=== PATIENT | male | born 1945 | race African-American/Black ===

== ENCOUNTER 2017-04-23 12:49 | Inpatient (IN) | payer MEDICARE ==
[~2017-04-23] VITALS: Ht 185.4 cm; Wt 83.0 kg
[2017-04-23] MEDS ORDERED: BACTOIN EACH NARE (12:51)
[2017-04-23] MEDS ORDERED: BUTA1CAP PO (12:51)
[2017-04-23] MEDS ORDERED: DIBU1OIN RECTAL (12:51)
[2017-04-23] MEDS ORDERED: ANAL1CRE2 RECTAL (12:51)
[2017-04-23] MEDS ORDERED: BACT800T5 PO (12:51)
[2017-04-23] MEDS ORDERED: ACETAMINOPHEN 325 MG TAB PO PRN (15:15)
[2017-04-23] MEDS ORDERED: CHLORHEXIDINE GLUCONATE 2 % 1 PACK (2 CLOTHS) TOP PRN (15:15)
[2017-04-23] MEDS ORDERED: RESP: ALBUTEROL 2.5 MG/IPRATROPIUM 0.5 MG NEB (PRN) INH (15:15)
[2017-04-23] MEDS ORDERED: ONDANSETRON HCL 4 MG/2 ML VIAL IV PRN (15:15)
[2017-04-23] MEDS ORDERED: MORPHINE SULFATE 4 MG/ML INJ IV PRN (15:15)
[2017-04-23] MEDS ORDERED: MISCELLANEOUS NURSING INFORMATION XX SCH (15:15)
[2017-04-23] MEDS ORDERED: MAGNESIUM HYDROXIDE SUSP 30 ML CUP PO PRN (15:15)
[2017-04-23] MEDS ORDERED: SENNOSIDES 8.6 MG TAB PO PRN (15:15)
[2017-04-23] MEDS ORDERED: LACTULOSE SYRUP 20 GM/30 ML CUP PO PRN (15:15)
[2017-04-23] MEDS ORDERED: BISACODYL 10 MG SUPP RECTAL PRN (15:15)
[2017-04-23 15:30] VITALS: PULSE 56
[2017-04-23] MEDS ORDERED: POTASSIUM PHOSPHATE MONOBASIC 500 MG TAB PO PRN (15:45)
[2017-04-23] MEDS ORDERED: MAGNESIUM OXIDE 400 MG TAB PO PRN (15:45)
[2017-04-23] MEDS ORDERED: MAGNESIUM SULFATE INJ 2 GM in SODIUM CHLORIDE 0.9% INJ 96 ML IV PRN (15:45)
[2017-04-23] MEDS ORDERED: POTASSIUM PHOSPHATE MONOBASIC 500 MG TAB PO/TUBE PRN (15:45)
[2017-04-23] MEDS ORDERED: POTASSIUM CHLOR 20 MEQ PREMIX 100 ML IV PRN ×2 (15:45)
[2017-04-23] MEDS ORDERED: POTASSIUM CHLOR 40 MEQ PREMIX 100 ML IV PRN ×2 (15:45)
[2017-04-23] MEDS ORDERED: POTASSIUM PHOSPHATE INJ 30 MMOL in SODIUM CHLOR 0.9% 250 ML INJ 250 ML IV PRN (15:45)
[2017-04-23] MEDS ORDERED: POTASSIUM CHLORIDE 25 MEQ EFFERVESCENT TAB PO PRN (15:45)
[2017-04-23] MEDS ORDERED: SODIUM PHOSPHATE INJ 30 MMOL in SODIUM CHLOR 0.9% 250 ML INJ 240 ML IV PRN (15:45)
[2017-04-23] MEDS ORDERED: MAGNESIUM SULFATE INJ 4 GM in SODIUM CHLORIDE 0.9% INJ 92 ML IV PRN (15:45)
[2017-04-23] MEDS ORDERED: niCARdipine INJ 25 MG in SODIUM CHLOR 0.9% 250 ML INJ 250 ML IV SCH (15:45)
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
[2017-04-23 16:00] VITALS: BP 139/73; PULSE 60; PULSE 70; RESP 14; TEMP 98.2; O2SAT 95
[2017-04-23] MEDS: SODIUM CHLOR 0.9% 1000 ML INJ 1,000 ML IV SCH (16:00)
[2017-04-23 18:00] VITALS: PULSE 46
[2017-04-23] MEDS ORDERED: LORazepam 2 MG/ML VIAL IVP PRN (18:00)
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
[2017-04-23 19:50] VITALS: O2SAT 100
[2017-04-23 20:00] VITALS: BP 133/66; PULSE 68; RESP 27; TEMP 98.3; O2SAT 93
[2017-04-23] MEDS: DOCUSATE SODIUM 50 MG/SENNA 8.6 MG TAB PO SCH (21:04)
[2017-04-23 22:00] VITALS: PULSE 100
[2017-04-24] VITALS (13 sets, daily range): BP systolic 124–133; BP diastolic 66–73; PULSE 50–77; RESP 16–23; TEMP 97.7–98.3; O2SAT 97–99
[2017-04-24] MEDS: CHLORHEXIDINE GLUCONATE 2 % 1 PACK (2 CLOTHS) TOP SCH (04:05)
[2017-04-24 04:37] LABS: BICARBONATE 26.1 MEQ/L (21.0-32.0); MAGNESIUM 2.2 MG/DL (1.5-2.5)
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
[2017-04-24] MEDS: PANTOPRAZOLE SODIUM 40 MG VIAL IV SCH (08:58)
[2017-04-24] MEDS: DOCUSATE SODIUM 50 MG/SENNA 8.6 MG TAB PO SCH ×2 (08:58→21:00)
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
[2017-04-24] MEDS ORDERED: GADODIAMIDE PF 287 MG/ML 20 ML VIAL (for RAD MRI) IV ONE (10:11)
--- NOTE | 2017-04-24 10:11 | RADRPT ---
EXAM DATE/TIME: 04/24/2017 09:38 [facility] COMPARISON: No previous studies available for comparison. INDICATIONS : Hemorrhage. MEDICAL HISTORY : None. SURGICAL HISTORY : None. ENCOUNTER: Subsequent ACUITY: 2 day PAIN SCORE: 0/10 LOCATION: cranial Please note a normal MRA of the brain does not entirely exclude the possibility of a small aneurysm, nor the possibility of distal intracranial vessel disease. TECHNIQUE: 3D time of flight MRA was performed. Source images, multiplanar STS MIP, and 3D volume MIP reconstru ctions were reviewed. FINDINGS: There is excellent visualization of the major intracranial arteries out to the second-order branch ve ssels. There is no evidence for aneurysm, vessel truncation or stenosis, and no evidence for vascula r malformation. The patient has a small basilar artery with prominent posterior communicating arteries bilaterally. The intraparenchymal and intraventricular hemorrhage seen on the CT scan is again noted CONCLUSION: Normal examination of the major cerebral vessels with a small posterior basilar system. Known intrap arenchymal and intraventricular hemorrhage. Faustino Randall MD on April 24, 2017 at 10:07 Board Certified Radiologist. This report was verified electronically.
--- NOTE | 2017-04-24 10:46 | RADRPT ---
EXAM DATE/TIME: 04/24/2017 09:38 [facility] COMPARISON: Prior CT scan 04/23/17, use for comparison. MRA also use for comparison 04/23. INDICATIONS : Hematoma, stroke. CONTRAST: 16 cc Omniscan (gadodiamide) IV MEDICAL HISTORY : None. SURGICAL HISTORY : None. ENCOUNTER: Subsequent ACUITY: 2 day PAIN SCORE: 0/10 LOCATION: Cranial TECHNIQUE: Multiplanar, multisequence MRI of the brain was performed both prior to and following the administration of paramagnetic contrast. FINDINGS: MRI of the brain was performed with and without contrast. There are two areas of intraparenchymal he morrhage within the left cerebrum. The first is in the left occipital lobe anteromedially measuring 2.3 x 1.3 cm across. Then above that there is a bi-lobed area of hemorrhage in its greatest axial di mension measures 2.2 x 2.5 cm. On the sagittal images that bi-lobed collection measures 4.7 cm in AP dimension. Pre and post contrast images show the areas of hemorrhage without any surrounding areas of mass. The ventricle does spill into left lateral ventricular system with significant hemorrhage i n the atria of the left lateral ventricle. There is no significant subarachnoid hemorrhage. No subd ural is seen. At this point there is still no significant mass effect. There is slight mass effect upon the atria of the left lateral ventricle but no shift or obvious herniation. Suprasellar cistern s patent. The areas of hemorrhage do show some increase on the diffusion weighted sequences but the rest of the brain parenchyma is unremarkable. There may be a few tiny areas of increased single on the diffusio n weighted sequences in the very high left parietal cortex but no greater than 2-3 mm. Basal ganglia is unremarkable. Orbits and globes are unremarkable. CONCLUSION: Multiple areas of hemorrhage including some hemorrhage spilling into the ventricular system. No abno rmal areas of enhancement. No underlying mass is identified on the images. Obvious significant abno rmal areas on the grading images. Please see above. Faustino Randall MD on April 24, 2017 at 10:16 Board Certified Radiologist. This report was verified electronically.
[2017-04-24] MEDS: SODIUM CHLOR 0.9% 1000 ML INJ 1,000 ML IV SCH (11:06)
[2017-04-25] VITALS (9 sets, daily range): BP systolic 107–135; BP diastolic 62–80; PULSE 50–78; RESP 14–22; TEMP 97.2–98.3; O2SAT 97–99
[2017-04-25] MEDS: CHLORHEXIDINE GLUCONATE 2 % 1 PACK (2 CLOTHS) TOP SCH (04:21)
[2017-04-25] MEDS: SODIUM CHLOR 0.9% 1000 ML INJ 1,000 ML IV SCH (07:06)
[2017-04-25] MEDS: DOCUSATE SODIUM 50 MG/SENNA 8.6 MG TAB PO SCH ×2 (08:06→21:21)
[2017-04-25] MEDS: PANTOPRAZOLE SODIUM 40 MG VIAL IV SCH (08:06)
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
--- NOTE | 2017-04-25 10:03 | PD.TRANSFR ---
Transfer Summary Admission Date Apr 23, 2017 at 15:25 Transfer Date: Apr 25, 2017 Admitting Diagnosis Intraparenchymal Brain Hemorrhage Diagnoses: (1) Intracerebral hemorrhage Diagnosis: Principal (2) Altered mental status, unspecified Diagnosis: Principal Significant Findings Left sided spontaneous intraparenchymal bleed. Ambulating today. Transfer Summary/Subjective Increase activity. Transfer to floor. Objective Vital Signs Date Time Temp Pulse Resp B/P Pulse Ox O2 Delivery O2 Flow Rate FiO2 04/25/17 08:45 97 21 04/25/17 08:00 97.6 65 16 107/62 04/25/17 07:00 Room Air Intake and Output 04/24/17 04/24/17 04/25/17 08:00 16:00 00:00 Intake Total 501 ml 990 ml 275 ml Output Total 250 ml 125 ml Balance 251 ml 865 ml 275 ml Result Diagram: 04/24/[address] Head: IPH left side, 3X4 cm Objective Remarks P 54, BP 126/56, R 12, Sats 96% Head: Atraumatic, normal. Neck: Supple, airway widely patent. Lungs: Clear, no wheezes or crackles. Heart: NL S1S2, bradycardia, no m,r. No JVD. Abdomen: Soft, NT, ND, no guarding. BS active. Extremities: Warm, well perfused. Neuro: Confused. Speech is clear. Moves 4 limbs to command. Hand grasps 5/5, arms and legs 5/5 strength. Toes down galileo. Pupils reactive, equal. EOMs intact. Tongue protrudes midline. Shoulder shrug symmetrical. Smile, grimace, jaw clench symmetrical. DTRs patella absent. A/P Assessment and Plan Assessment: 1. Left intraparenchymal hemorrhage 2. Encephalopathy. Plan: 1. BP control < 140/90. 2. Cardene prn. 3. Hydralazine prn intermittent control needs. 4. No chemical DVT prophylaxis. 5. SCDs. 6. Protonix. 7. Repeat CT a.m. 8. HOB elevated. 9. Neurosurgery consulting. Overall impression: Intraparenchymal bleed with surrounding vasogenic edema. Establish BP control, follow exam. Increase activity. Hayes Betts MD Apr 25, 2017 10:03
[2017-04-26] VITALS (7 sets, daily range): BP systolic 110–136; BP diastolic 59–76; PULSE 63–93; RESP 17–20; TEMP 97.2–98.8; O2SAT 93–99
[2017-04-26] MEDS: CHLORHEXIDINE GLUCONATE 2 % 1 PACK (2 CLOTHS) TOP SCH (04:00)
[2017-04-26] MEDS: DOCUSATE SODIUM 50 MG/SENNA 8.6 MG TAB PO SCH ×2 (08:16→21:22)
[2017-04-26] MEDS: PANTOPRAZOLE SODIUM 40 MG VIAL IV SCH (08:16)
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
--- NOTE | 2017-04-26 14:52 | HHI.PR ---
Subjective Remarks Patient seen and examined this morning. His vitals are stable and he's afebrile. Wants to shower. Knows where he is and his name. Unsure of date. Incorrectly states what he had for breakfast. Overall significantly improved over the past few days, but is not yet at baseline. Per nurse he can be impulsive. He is able to walk, but is not consistently stable on his feet. Denies CP, HOUSE, or difficulty breathing. Objective Vital Signs Date Time Temp Pulse Resp B/P Pulse Ox O2 Delivery O2 Flow Rate FiO2 04/26/17 12:01 98.1 69 20 124/76 97 04/26/17 08:48 98.0 66 20 136/69 93 04/26/17 05:15 98.8 64 20 128/69 98 04/26/17 00:20 97.7 67 17 132/76 96 04/25/17 20:30 98.0 69 17 135/80 97 04/25/17 16:00 98.3 62 22 125/70 99 I/O 04/25/17 04/25/17 04/25/17 04/26/17 04/26/17 04/26/17 07:00 15:00 23:00 07:00 15:00 23:00 Intake Total 240 ml 480 ml 100 ml 650 ml Output Total 0 ml Balance 240 ml 480 ml 100 ml 650 ml Intake Oral 240 ml 480 ml 100 ml 650 ml Output Urine Total 0 ml # Voids 1 2 4 1 # Bowel Movements 0 1 0 0 1 Result Diagram: 04/24/17 0354 Imaging Last Impressions Head Magnetic Resonance Angiography 04/24/17 06 Signed Impressions: Service Date/Time: Monday, April 24, 2017 09:38 - CONCLUSION: Normal examination of the major cerebral vessels with a small posterior basilar system. Known intraparenchymal and intraventricular hemorrhage. Faustino Randall MD Brain MRI 04/24/17 06 Signed Impressions: Service Date/Time: Monday, April 24, 2017 09:38 - CONCLUSION: Multiple areas of hemorrhage including some hemorrhage spilling into the ventricular system. No abnormal areas of enhancement. No underlying mass is identified on the images. Obvious significant abnormal areas on the grading images. Please see above. Faustion Randall MD Objective Remarks GENERAL: sitting up in bed, nad SKIN: Warm and dry. HEAD: Atraumatic. Normocephalic. EYES: Pupils equal and round. No scleral icterus. No injection or drainage. ENT: No nasal bleeding or discharge. Mucous membranes pink and moist. NECK: Trachea midline. No JVD. CARDIOVASCULAR: Regular rate and rhythm. RESPIRATORY: No accessory muscle use. Clear to auscultation. Breath sounds equal bilaterally. GASTROINTESTINAL: Abdomen soft, non-tender, nondistended. Hepatic and splenic margins not palpable. MUSCULOSKELETAL: Extremities without clubbing, cyanosis, or edema. No obvious deformities. NEUROLOGICAL: Awake and alert. Normal speech. Alert and orientated x 2. Follows commands. PSYCHIATRIC: Appropriate mood and affect; insight and judgment normal. A/P Problem List: (1) Intracerebral hemorrhage ICD Code: I61.9 (2) Altered mental status, unspecified ICD Code: R41.82 Assessment and Plan 71-year-old male patient with intracranial hemorrhage related to left spontaneous intraparenchymal bleed, now with altered mental status. Was initially managed by critical care on admission. Has now been transitioned to hospitalist and neurosurgery continues to follow the patient. Intracerebral hemorrhage: - Management per neurosurgery. - See imaging above, left parietal-occipital lobe nontraumatic intracerebral hemorrhage with extension into lateral ventricle without any hydrocephalus. Differential diagnosis per neurosurgery includes hypertensive bleed, amyloid angiopathy, underlying mass, or vascular abnormality. Their plan is to continue to monitor, continue neuro checks, continue nonsurgical management. Patient will need rehabilitation upon discharge. Altered mental status - Ambulation improving, alertness improving, continues to be disoriented. Causes above. Hypertension: - Goal blood pressure less than 140/90. - Patient currently normotensive Discharge Planning DC home when cleared by neurosurgery. [facility] is following. Patient is requesting to go home upon discharge. PT recommends home with no PT recommendation,'s require supervision for safety. Likely d/c 1-2 as he continues to improve. Problem Qualifiers (1) Intracerebral hemorrhage: Qualified Code: I61.9 - Left-sided nontraumatic intracerebral hemorrhage, unspecified cerebral location Kaylin Flor MD Apr 26, 2017 14:52
[2017-04-27] VITALS (7 sets, daily range): BP systolic 112–142; BP diastolic 62–73; PULSE 61–73; RESP 18; TEMP 97.4–98.7; O2SAT 95–99
[2017-04-27] MEDS: CHLORHEXIDINE GLUCONATE 2 % 1 PACK (2 CLOTHS) TOP SCH (04:00)
[2017-04-27] MEDS: DOCUSATE SODIUM 50 MG/SENNA 8.6 MG TAB PO SCH ×2 (07:44→21:00)
[2017-04-27] MEDS: PANTOPRAZOLE SODIUM 40 MG VIAL IV SCH (07:44)
--- NOTE | 2017-04-27 12:37 | HHI.PR ---
Subjective Remarks Patient seen and examined this morning. His vitals are stable and he's afebrile. Patient is open to going to rehab. HE knows the place and his name, but is unable to state what year it is. He is confused at times. Denies CP or SOB. Ambulatory but intermittently unsteady. Objective Vital Signs Date Time Temp Pulse Resp B/P Pulse Ox O2 Delivery O2 Flow Rate FiO2 04/27/17 10:28 96 21 04/27/17 08:54 98.4 61 18 126/70 96 04/27/17 04:30 98.3 64 18 112/62 99 04/27/17 03:32 95 04/26/17 23:45 97.9 64 17 110/60 99 04/26/17 20:30 98.0 63 18 111/59 99 04/26/17 16:29 97.2 93 20 112/73 96 I/O 04/26/17 04/26/17 04/26/17 04/27/17 04/27/17 04/27/17 07:00 15:00 23:00 07:00 15:00 23:00 Intake Total 650 ml 840 ml 675 ml Balance 650 ml 840 ml 675 ml Intake Oral 650 ml 840 ml 675 ml # Voids 4 1 1 2 1 # Bowel Movements 0 1 0 0 1 Result Diagram: 04/24/17 0354 Imaging Last Impressions Head Magnetic Resonance Angiography 04/24/17 06 Signed Impressions: Service Date/Time: Monday, April 24, 2017 09:38 - CONCLUSION: Normal examination of the major cerebral vessels with a small posterior basilar system. Known intraparenchymal and intraventricular hemorrhage. Faustino Randall MD Brain MRI 04/24/17 06 Signed Impressions: Service Date/Time: Monday, April 24, 2017 09:38 - CONCLUSION: Multiple areas of hemorrhage including some hemorrhage spilling into the ventricular system. No abnormal areas of enhancement. No underlying mass is identified on the images. Obvious significant abnormal areas on the grading images. Please see above. Faustino Randall MD Objective Remarks GENERAL: sitting up in bed, nad SKIN: Warm and dry. HEAD: Atraumatic. Normocephalic. EYES: Pupils equal and round. No scleral icterus. No injection or drainage. ENT: No nasal bleeding or discharge. Mucous membranes pink and moist. NECK: Trachea midline. No JVD. CARDIOVASCULAR: Regular rate and rhythm. RESPIRATORY: No accessory muscle use. Clear to auscultation. Breath sounds equal bilaterally. GASTROINTESTINAL: Abdomen soft, non-tender, nondistended. Hepatic and splenic margins not palpable. MUSCULOSKELETAL: Extremities without clubbing, cyanosis, or edema. No obvious deformities. NEUROLOGICAL: Awake and alert. Normal speech. Alert and orientated x 2. Follows commands. PSYCHIATRIC: Appropriate mood and affect; insight and judgment normal. A/P Problem List: (1) Intracerebral hemorrhage ICD Code: I61.9 (2) Altered mental status, unspecified ICD Code: R41.82 Assessment and Plan 71-year-old male patient with intracranial hemorrhage related to left spontaneous intraparenchymal bleed, now with altered mental status. Was initially managed by critical care on admission. Has now been transitioned to hospitalist and neurosurgery continues to follow the patient. Intracerebral hemorrhage: - Management per neurosurgery. - See imaging above, left parietal-occipital lobe nontraumatic intracerebral hemorrhage with extension into lateral ventricle without any hydrocephalus. Differential diagnosis per neurosurgery includes hypertensive bleed, amyloid angiopathy, underlying mass, or vascular abnormality. Their plan is to continue to monitor, continue neuro checks, continue nonsurgical management. Patient will need rehabilitation upon discharge. Altered mental status - Ambulation improving, alertness improving, continues to be disoriented. Causes above. Hypertension: - Goal blood pressure less than 140/90. - Patient currently normotensive Discharge Planning DC home when cleared by neurosurgery. [facility] is following. Neurosug recommends rehab. Will discuss with family. Placement pending CM to assist. Likely d/c Saturday. Problem Qualifiers (1) Intracerebral hemorrhage: Qualified Code: I61.9 - Left-sided nontraumatic intracerebral hemorrhage, unspecified cerebral location Kaylin Flor MD Apr 27, 2017 12:37
--- NOTE | 2017-04-27 17:25 | HHI.NSPN ---
History Chief Complaint: intracranial hemorrhage. Interval History 71-year-old male recently admitted for spontaneous intracranial hemorrhage. Exam Results Vital Signs Date Time Temp Pulse Resp B/P Pulse Ox O2 Delivery O2 Flow Rate FiO2 04/27/17 16:52 98.2 73 18 126/69 96 04/27/17 10:28 21 04/25/17 07:00 Room Air Intake and Output 04/26/17 04/26/17 04/27/17 08:00 16:00 00:00 Intake Total 650 ml 840 ml Balance 650 ml 840 ml Physical Examination Resp: CTA bilaterally Heart: NSR no murmurs Abd: Soft positive bs Skin: No cyanosis or erythema Muscle: Moves all 4 extremities well. Neuro: Awake and alert. His speech is clear. Exhibits only mild confusion. Answers questions appropriately and follows simple commands well. Extraocular movements intact. Facial motor movements symmetric Sensation intact light touch all extremities Strength is within normal limits and major flexion and extension groups all extremities Medical Decision Making Impression and Plan Impression: Mental status improved today. Status post spontaneous intracranial hemorrhage. Plan: Discussed with patient Case management notes reviewed Possible discharge to inpatient rehabilitation. OT and speech therapy consults per case management request. Continuing PT Stable for discharge from neurosurgery standpoint once arrangements are made. Bubba Trivedi MD Apr 27, 2017 17:25
[2017-04-28] VITALS: BP 138/74; PULSE 68; RESP 18; TEMP 98; O2SAT 96
[2017-04-28 04:00] VITALS: BP 138/65; PULSE 65; RESP 20; TEMP 98.9; O2SAT 99
[2017-04-28] MEDS: CHLORHEXIDINE GLUCONATE 2 % 1 PACK (2 CLOTHS) TOP SCH (04:00)
[2017-04-28] MEDS: DOCUSATE SODIUM 50 MG/SENNA 8.6 MG TAB PO SCH ×2 (08:22→21:00)
[2017-04-28 08:24] VITALS: BP 127/75; PULSE 80; RESP 20; TEMP 98.1; O2SAT 96
[2017-04-28] MEDS: PANTOPRAZOLE SODIUM 40 MG VIAL IV SCH (08:24)
[2017-04-28 12:00] VITALS: BP 150/81; PULSE 102; RESP 20; TEMP 98; O2SAT 97
--- NOTE | 2017-04-28 12:03 | HHI.DCPOC ---
Discharge Care Plan Diagnosis: (1) Intracerebral hemorrhage Goals to Promote Your Health * To prevent worsening of your condition and complications * To maintain your health at the optimal level Directions to Meet Your Goals Take your medications as prescribed Follow your dietary instruction Follow activity as directed Keep your appointments as scheduled Take your immunizations and boosters as scheduled If your symptoms worsen call your PCP, if no PCP go to Urgent Care Center or Emergency Room Smoking is Dangerous to Your Health. Avoid second hand smoke Call the 24-hour hour crisis hotline for domestic abuse at Kaylin Flor MD Apr 28, 2017 12:03
--- NOTE | 2017-04-28 12:05 | HHI.PR ---
Subjective Remarks Patient seen and examined this morning. His vitals are stable and he's afebrile. Family at bedside. States he feels great, anxious to go to rehab. Still confused at times. Objective Vital Signs Date Time Temp Pulse Resp B/P Pulse Ox O2 Delivery O2 Flow Rate FiO2 04/28/17 08:24 98.1 80 20 127/75 96 04/28/17 04:00 98.9 65 20 138/65 99 04/28/17 00:00 98.0 68 18 138/74 96 04/27/17 20:00 98.7 69 18 130/73 96 04/27/17 16:52 98.2 73 18 126/69 96 04/27/17 13:11 97.4 62 18 142/68 98 I/O 04/27/17 04/27/17 04/27/17 04/28/17 04/28/17 04/28/17 06:59 14:59 22:59 06:59 14:59 22:59 Intake Total 675 ml 720 ml 120 ml Output Total 0 ml 0 ml 550 ml Balance 675 ml 720 ml 120 ml -550 ml Intake Oral 675 ml 720 ml 120 ml Output Urine Total 0 ml 0 ml 550 ml # Voids 2 1 2 # Bowel Movements 0 1 2 1 Result Diagram: 04/24/17 0354 Imaging Last Impressions Head Magnetic Resonance Angiography 04/24/17599 Signed Impressions: Service Date/Time: Monday, April 24, 2017 09:38 - CONCLUSION: Normal examination of the major cerebral vessels with a small posterior basilar system. Known intraparenchymal and intraventricular hemorrhage. Faustino Randall MD Brain MRI 04/24/17599 Signed Impressions: Service Date/Time: Monday, April 24, 2017 09:38 - CONCLUSION: Multiple areas of hemorrhage including some hemorrhage spilling into the ventricular system. No abnormal areas of enhancement. No underlying mass is identified on the images. Obvious significant abnormal areas on the grading images. Please see above. Faustino Randall MD Objective Remarks GENERAL: sitting up in bed, nad SKIN: Warm and dry. HEAD: Atraumatic. Normocephalic. EYES: Pupils equal and round. No scleral icterus. No injection or drainage. ENT: No nasal bleeding or discharge. Mucous membranes pink and moist. NECK: Trachea midline. No JVD. CARDIOVASCULAR: Regular rate and rhythm. RESPIRATORY: No accessory muscle use. Clear to auscultation. Breath sounds equal bilaterally. GASTROINTESTINAL: Abdomen soft, non-tender, nondistended. Hepatic and splenic margins not palpable. MUSCULOSKELETAL: Extremities without clubbing, cyanosis, or edema. No obvious deformities. NEUROLOGICAL: Awake and alert. Normal speech. Alert and orientated x 2. Follows commands. PSYCHIATRIC: Appropriate mood and affect; insight and judgment normal. A/P Problem List: (1) Intracerebral hemorrhage ICD Code: I61.9 (2) Altered mental status, unspecified ICD Code: R41.82 Assessment and Plan 71-year-old male patient with intracranial hemorrhage related to left spontaneous intraparenchymal bleed, now with altered mental status. Was initially managed by critical care on admission. Has now been transitioned to hospitalist and neurosurgery continues to follow the patient. Intracerebral hemorrhage: - Management per neurosurgery. - See imaging above, left parietal-occipital lobe nontraumatic intracerebral hemorrhage with extension into lateral ventricle without any hydrocephalus. Differential diagnosis per neurosurgery includes hypertensive bleed, amyloid angiopathy, underlying mass, or vascular abnormality. Their plan is to continue to monitor, continue neuro checks, continue nonsurgical management. Patient will need rehabilitation upon discharge. Altered mental status - Ambulation improving, alertness improving, continues to be disoriented. Causes above. Hypertension: - Goal blood pressure less than 140/90. - Patient currently normotensive Discharge Planning Cleared by neurosurgery. D/C to [facility] once arrangements have been made. Problem Qualifiers (1) Intracerebral hemorrhage: Qualified Code: I61.9 - Left-sided nontraumatic intracerebral hemorrhage, unspecified cerebral location Kaylin Flor MD Apr 28, 2017 12:05
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
[2017-04-28 16:30] VITALS: BP 132/72; PULSE 83; RESP 20; TEMP 98.9; O2SAT 96
[2017-04-28 20:00] VITALS: BP 142/73; PULSE 70; RESP 20; TEMP 97.8; O2SAT 97
[2017-04-29] VITALS: BP 121/56; PULSE 60; RESP 18; TEMP 99.8; O2SAT 98
[2017-04-29 04:00] VITALS: BP 120/69; PULSE 72; RESP 20; TEMP 98.9; O2SAT 95
[2017-04-29] MEDS: CHLORHEXIDINE GLUCONATE 2 % 1 PACK (2 CLOTHS) TOP SCH (04:00)
[2017-04-29 08:00] VITALS: BP 132/72; PULSE 87; RESP 16; TEMP 98.1; O2SAT 99
[2017-04-29] MEDS: PANTOPRAZOLE SODIUM 40 MG VIAL IV SCH (09:00)
[2017-04-29] MEDS: DOCUSATE SODIUM 50 MG/SENNA 8.6 MG TAB PO SCH ×2 (09:00→21:00)
--- NOTE | 2017-04-29 11:19 | HHI.PR ---
Subjective Remarks Patient seen and examined this morning. His vitals are stable and he's afebrile. Family at bedside. States he feels great, anxious to go to rehab. Still confused at times. Seen walking the halls. Was discharged yesterday, placement there is pending. Objective Vital Signs Date Time Temp Pulse Resp B/P Pulse Ox O2 Delivery O2 Flow Rate FiO2 04/29/17 08:00 98.1 87 16 132/72 99 04/29/17 04:00 98.9 72 20 120/69 95 04/29/17 00:00 99.8 60 18 121/56 98 04/28/17 20:00 97.8 70 20 142/73 97 04/28/17 16:30 98.9 83 20 132/72 96 04/28/17 12:00 98.0 102 20 150/81 97 I/O 04/28/17 04/28/17 04/28/17 04/29/17 04/29/17 04/29/17 06:59 14:59 22:59 06:59 14:59 22:59 Intake Total 120 ml 360 ml Output Total 0 ml 550 ml Balance 120 ml -190 ml Intake Oral 120 ml 360 ml Output Urine Total 0 ml 550 ml # Voids 1 2 # Bowel Movements 1 Imaging Last Impressions Head Magnetic Resonance Angiography 04/24/17 06 Signed Impressions: Service Date/Time: Monday, April 24, 2017 09:38 - CONCLUSION: Normal examination of the major cerebral vessels with a small posterior basilar system. Known intraparenchymal and intraventricular hemorrhage. Faustino Randall MD Brain MRI 04/24/17 0600 Signed Impressions: Service Date/Time: Monday, April 24, 2017 09:38 - CONCLUSION: Multiple areas of hemorrhage including some hemorrhage spilling into the ventricular system. No abnormal areas of enhancement. No underlying mass is identified on the images. Obvious significant abnormal areas on the grading images. Please see above. Faustino Randall MD Objective Remarks GENERAL: sitting up in bed, nad SKIN: Warm and dry. HEAD: Atraumatic. Normocephalic. EYES: Pupils equal and round. No scleral icterus. No injection or drainage. ENT: No nasal bleeding or discharge. Mucous membranes pink and moist. NECK: Trachea midline. No JVD. CARDIOVASCULAR: Regular rate and rhythm. RESPIRATORY: No accessory muscle use. Clear to auscultation. Breath sounds equal bilaterally. GASTROINTESTINAL: Abdomen soft, non-tender, nondistended. Hepatic and splenic margins not palpable. MUSCULOSKELETAL: Extremities without clubbing, cyanosis, or edema. No obvious deformities. NEUROLOGICAL: Awake and alert. Normal speech. Alert and orientated x 2. Follows commands. PSYCHIATRIC: Appropriate mood and affect; insight and judgment normal. A/P Problem List: (1) Intracerebral hemorrhage ICD Code: I61.9 (2) Altered mental status, unspecified ICD Code: R41.82 Assessment and Plan 71-year-old male patient with intracranial hemorrhage related to left spontaneous intraparenchymal bleed, now with altered mental status. Was initially managed by critical care on admission. Has now been transitioned to hospitalist and neurosurgery continues to follow the patient. Intracerebral hemorrhage: - Management per neurosurgery. - See imaging above, left parietal-occipital lobe nontraumatic intracerebral hemorrhage with extension into lateral ventricle without any hydrocephalus. Differential diagnosis per neurosurgery includes hypertensive bleed, amyloid angiopathy, underlying mass, or vascular abnormality. Their plan is to continue to monitor, continue neuro checks, continue nonsurgical management. Patient will need rehabilitation upon discharge. Altered mental status - Ambulation improving, alertness improving, continues to be disoriented. Causes above. Hypertension: - Goal blood pressure less than 140/90. - Patient currently normotensive Discharge Planning Cleared by neurosurgery. D/C to [facility] once arrangements have been made. Problem Qualifiers (1) Intracerebral hemorrhage: Qualified Code: I61.9 - Left-sided nontraumatic intracerebral hemorrhage, unspecified cerebral location Kaylin Flor MD Apr 29, 2017 11:19
[2017-04-29 12:00] VITALS: BP 130/71; PULSE 71; RESP 16; TEMP 98.3; O2SAT 95
[2017-04-29 16:00] VITALS: BP 158/87; PULSE 81; RESP 18; TEMP 98; O2SAT 95
[2017-04-29 20:00] VITALS: BP 165/65; PULSE 57; RESP 18; TEMP 98.1; O2SAT 98
[2017-04-30] VITALS: BP 123/65; PULSE 68; RESP 18; TEMP 97.5; O2SAT 95
[2017-04-30 04:00] VITALS: BP 124/67; PULSE 67; RESP 18; TEMP 95; O2SAT 95
[2017-04-30] MEDS: CHLORHEXIDINE GLUCONATE 2 % 1 PACK (2 CLOTHS) TOP SCH (04:00)
[2017-04-30 08:00] VITALS: BP 163/74; PULSE 84; RESP 16; TEMP 97.8; O2SAT 95
[2017-04-30] MEDS: PANTOPRAZOLE SODIUM 40 MG VIAL IV SCH (10:09)
[2017-04-30 12:00] VITALS: BP 128/61; PULSE 68; RESP 16; TEMP 97.9; O2SAT 98
--- NOTE | 2017-04-30 12:08 | HHI.PR ---
Subjective Remarks Patient seen and examined this morning. His vitals are stable and he's afebrile. Family at bedside. Was not accepted by [facility]. Family is at bedside. Cousin states they found a packet of papers at the patients home that are his discharge paperwork from a March Hospitalization for intracerebral hemorrhage. They have many questions concerning this. They state he is supposed to see a neurosurgeon on the of this month. Does not have a PCP locally. His sister will be staying with him until he gets back into his normal routine. Home health has also been arranged. He is without complaints or concerns today. Objective Vital Signs Date Time Temp Pulse Resp B/P Pulse Ox O2 Delivery O2 Flow Rate FiO2 04/30/17 08:00 97.8 84 16 163/74 95 04/30/17 04:00 95.0 67 18 124/67 95 04/30/17 00:00 97.5 68 18 123/65 95 04/29/17 20:00 98.1 57 18 165/65 98 04/29/17 16:00 98.0 81 18 158/87 95 I/O 04/29/17 04/29/17 04/29/17 04/30/17 04/30/17 04/30/17 06:59 14:59 22:59 06:59 14:59 22:59 Intake Total 720 ml Balance 720 ml Intake Oral 720 ml # Voids 2 4 4 # Bowel Movements 1 2 Imaging Last Impressions Head Magnetic Resonance Angiography 04/24/17 0600 Signed Impressions: Service Date/Time: Monday, April 24, 2017 09:38 - CONCLUSION: Normal examination of the major cerebral vessels with a small posterior basilar system. Known intraparenchymal and intraventricular hemorrhage. Faustino Randall MD Brain MRI 04/24/17 0600 Signed Impressions: Service Date/Time: Monday, April 24, 2017 09:38 - CONCLUSION: Multiple areas of hemorrhage including some hemorrhage spilling into the ventricular system. No abnormal areas of enhancement. No underlying mass is identified on the images. Obvious significant abnormal areas on the grading images. Please see above. Faustino Randall MD Objective Remarks GENERAL: sitting up in bed, nad SKIN: Warm and dry. HEAD: Atraumatic. Normocephalic. EYES: Pupils equal and round. No scleral icterus. No injection or drainage. ENT: No nasal bleeding or discharge. Mucous membranes pink and moist. NECK: Trachea midline. No JVD. CARDIOVASCULAR: Regular rate and rhythm. RESPIRATORY: No accessory muscle use. Clear to auscultation. Breath sounds equal bilaterally. GASTROINTESTINAL: Abdomen soft, non-tender, nondistended. Hepatic and splenic margins not palpable. MUSCULOSKELETAL: Extremities without clubbing, cyanosis, or edema. No obvious deformities. NEUROLOGICAL: Awake and alert. Normal speech. Alert and orientated x 2. Follows commands. PSYCHIATRIC: Appropriate mood and affect; insight and judgment normal. A/P Problem List: (1) Intracerebral hemorrhage ICD Code: I61.9 (2) Altered mental status, unspecified ICD Code: R41.82 Assessment and Plan 71-year-old male patient with intracranial hemorrhage related to left spontaneous intraparenchymal bleed, now with altered mental status. Was initially managed by critical care on admission. Has now been transitioned to hospitalist and neurosurgery continues to follow the patient. Intracerebral hemorrhage: - Management per neurosurgery. - See imaging above, left parietal-occipital lobe nontraumatic intracerebral hemorrhage with extension into lateral ventricle without any hydrocephalus. Differential diagnosis per neurosurgery includes hypertensive bleed, amyloid angiopathy, underlying mass, or vascular abnormality. Their plan is to continue to monitor, continue neuro checks, continue nonsurgical management. Patient going home with home health, not accepted by [facility]. Altered mental status - Ambulation improving, alertness improving, continues to be disoriented. Causes above. Hypertension: - Goal blood pressure less than 140/90. - Patient currently normotensive Discharge Planning Cleared by neurosurgery. Was not accepted by [facility], plan for home with home health. Has an appt to see neurosurgery on May 05, encouraged to keep this apt. Encouraged also to establish with a PCP. Problem Qualifiers (1) Intracerebral hemorrhage: Qualified Code: I61.9 - Left-sided nontraumatic intracerebral hemorrhage, unspecified cerebral location Kaylin Flor MD Apr 30, 2017 12:08
--- NOTE | 2017-04-30 12:09 | HHI.FF ---
Face to Face Verification Diagnosis: (1) Intracerebral hemorrhage Physical Therapy Order: Evaluate and Treat, Improve ambulation, Strength and gait training Occupational Therapy Order: Evaluate and Treat, Improve ADL Speech Therapy Order: To Improve: Speech and communication skills, Cognitive skills I have seen patient Mike Cornell on 04/30/17. My clinical findings support the need for the requested home health care services because: Need for psychosocial assistance Impaired cognition/judgement I certify that my clinical findings support that this patient is homebound because: Impaired cognitive ability/safety Unsteady gait/balance Need for psychosocial assistance Kaylin Flor MD Apr 30, 2017 12:09
[2017-04-30 15:00] VITALS: BP 148/69; PULSE 67; RESP 16; TEMP 97.5; O2SAT 97
--- NOTE | 2017-04-30 16:22 | HHI.FF ---
Face to Face Verification Diagnosis: (1) Intracerebral hemorrhage Physical Therapy Order: Evaluate and Treat, Improve ambulation, Strength and gait training Occupational Therapy Order: Evaluate and Treat, Improve ADL Speech Therapy Order: To Improve: Speech and communication skills, Cognitive skills, Swallowing Home Health Nursing Order: Medical education Signs/symptoms of disease process Nursing assessment with vital signs I have seen patient Mike Cornell on 04/30/17. My clinical findings support the need for the requested home health care services because: Ltd mobility - disease progression Impaired cognition/judgement I certify that my clinical findings support that this patient is homebound because: Impaired cognitive ability/safety Unsteady gait/balance Need for psychosocial assistance Kaylin Flor MD Apr 30, 2017 16:22
== END 2017-04-30 15:42 | disposition home health service (06) | DRG 64 ==
LOC: NEDDLT 15:15 → N03A 15:25 → N05A 04-25 19:10
PROVIDERS: ADMIT Surgery Surgical Critical Care; ATTEND Family Medicine
DX: I61.5 Nontraumatic intracerebral hemorrhage, intraventricular (principal); G93.6 Cerebral edema; G93.40 Encephalopathy, unspecified; I10 Essential (primary) hypertension; N28.9 Disorder of kidney and ureter, unspecified
CPT/HCPCS: 70450; 70544; 70553; 71010; 80048; 80053; 83735; 84100; 84443; 84484; 85025; 85610; 85730; 87641; 93005; 94150; A9579; C9113; J2405; J7030